=== PATIENT | male | born 1950 | race Two or more races ===

== ENCOUNTER 2018-02-04 20:36 | Inpatient (IN) | payer MEDICARE, MEDICAID ==
[~2018-02-04] VITALS: Ht 170.2 cm; Wt 61.7 kg
[2018-02-04 21:17] LABS: BASOPHILS % (AUTO) 0.9 % (0.0-2.0); EOSINOPHILS # (AUTO) 0.2 K/uL (0.0-0.7); EOSINOPHILS % (AUTO) 3.9 % (0.0-7.0); HEMATOCRIT 40.8 % (36.7-47.1); LYMPHOCYTES # (AUTO) 1.2 K/uL (20.0-40.0); LYMPHOCYTES % (AUTO) 23.8 % (20.5-51.5); MEAN CORPUSCULAR HEMOGLOBIN 30.1 uug (23.8-33.4); MEAN CORPUSCULAR HGB CONC 34 g/dL (32.5-36.3); MEAN CORPUSCULAR VOLUME 87.9 fL (73.0-96.2); MONOCYTES # (AUTO) 0.5 K/uL (2.0-10.0); MONOCYTES % (AUTO) 10.7 % (0.0-11.0); NEUTROPHILS % (AUTO) 60.7 % (38.5-71.5); PLATELET COUNT (AUTO) 162 K/uL (152-348); RED BLOOD CELL COUNT(AUTO) 4.65 MIL/uL (4.06-5.63)
[2018-02-04] MEDS ORDERED: IBUP-1953 PO (21:20)
[2018-02-04] MEDS ORDERED: ALBU2.5V13 IH (21:20)
[2018-02-04] MEDS ORDERED: FERR325T28 PO (21:20)
[2018-02-04] MEDS ORDERED: MELA5TAB PO (21:20)
[2018-02-04] MEDS ORDERED: ASCO500T10 PO (21:20)
[2018-02-04] MEDS ORDERED: CARB15DR49 OT (21:20)
[2018-02-04] MEDS ORDERED: CHOL10002 PO (21:20)
[2018-02-04] MEDS ORDERED: ALEN70TA45 PO (21:20)
[2018-02-04] MEDS ORDERED: LEUP22.54 SQ (21:20)
[2018-02-04] MEDS ORDERED: ACET-2154 PO (21:20)
[2018-02-04] MEDS ORDERED: HYDR-3326 PO (21:20)
[2018-02-04] MEDS ORDERED: ATOR10TA PO (21:20)
[2018-02-04] MEDS ORDERED: IPRA12.9 IH (21:20)
[2018-02-04] MEDS ORDERED: OMEP20TA5 PO (21:20)
[2018-02-04] MEDS ORDERED: CALC500T3 PO (21:20)
[2018-02-04] MEDS ORDERED: [UNRECOGNIZED DRUG - OTHER] (21:20)
[2018-02-04] MEDS ORDERED: SERT50TA PO (21:20)
[2018-02-04] MEDS ORDERED: SUCR1TAB PO (21:20)
[2018-02-04] MEDS ORDERED: CLON0.5T4 PO (21:20)
[2018-02-04] MEDS ORDERED: PRIM50TA PO (21:20)
[2018-02-04] MEDS ORDERED: FLUT12AE IH (21:23)
[2018-02-04 21:24] LABS: CARBON DIOXIDE 22 mmol/L (21-32); CHLORIDE 103 mmol/L (98-107); CREATININE 1.2 mg/dL (0.6-1.3); GLUCOSE 107 mg/dL (74-106); POTASSIUM 3.8 mmol/L (3.5-5.1); UREA NITROGEN, BLOOD 26 mg/dL (7-18)
[2018-02-04 21:29] LABS: ALANINE AMINOTRANSFERASE 33 U/L (16-63); ALKALINE PHOSPHATASE 89 U/L (50-136); ASPARTATE AMINOTRANSFERASE 18 U/L (15-37); BILIRUBIN,DIRECT 0.1 mg/dL (0.0-0.2); BILIRUBIN,TOTAL 0.2 mg/dL (0.2-1.0); TOTAL PROTEIN, SERUM 6.5 g/dL (6.4-8.2)
[2018-02-04 21:30] LABS: ACETAMINOPHEN < 2.0 ug/mL (10-30)
[2018-02-04 21:36] LABS: ETHANOL < 3 MG/DL (0-0)
[2018-02-04 21:37] LABS: THYROID STIMULATING HORMONE 4.835 mIU/mL (0.358-3.740)
[2018-02-04] MEDS ORDERED: TEMAZEPAM 7.5 MG CAPSULE PO PRN (23:00)
[2018-02-04] MEDS ORDERED: MAGNESIUM HYDROXIDE 30 ML LIQUID UDC PO PRN (23:00)
[2018-02-04] MEDS ORDERED: ACETAMINOPHEN 325 MG TABLET PO PRN (23:00)
[2018-02-04] MEDS ORDERED: MAG HYDROX/AL HYDROX/SIMETH 30 ML LIQUID UDC PO PRN (23:00)
[2018-02-04 23:57] VITALS: BP 105/60
[2018-02-05 08:13] VITALS: BP 119/70
[2018-02-05] MEDS: IPRATROPIUM BROMIDE 0.5 MG/2.5 ML NEBU NEB PRN ×2 (13:02→21:08)
[2018-02-05] MEDS: ALBUTEROL SULFATE 2.5 MG/ 0.5 ML NEBU IH PRN ×2 (13:02→21:08)
[2018-02-05] MEDS: PRIMIDONE 50 MG TABLET PO SCH ×2 (14:02→16:37)
[2018-02-05] MEDS: LORAZEPAM 0.5 MG TABLET PO PRN (14:37)
[2018-02-05 15:28] VITALS: BP 100/61
[2018-02-05] MEDS: QUETIAPINE FUMARATE 25 MG TABLET PO SCH (16:37)
[2018-02-05] MEDS: CARBAMIDE PEROXIDE OTIC DROP 15 ML BOTTLE OT SCH (16:37)
[2018-02-05 17:08] LABS: *BILIRUBIN,URIN NEGATIVE (NEGATIVE); *BLOOD, URINE NEGATIVE (NEGATIVE); *CLARITY,URINE CLEAR (CLEAR); *COLOR,URINE YELLOW (YELLOW); *KETONES,URINE NEGATIVE (NEGATIVE); *PROTEIN,URINE NEGATIVE (NEGATIVE); *UROBILINOGEN,URINE 0.2 E.U./dl (NORMAL); LEUKOCYTE ESTERASE ,URINE NEGATIVE (NEGATIVE); NITRITE, URINE NEGATIVE (NEGATIVE); PH,URINE 5.5 (5.0-8.0); UGLUCOSE NEGATIVE (NEGATIVE)
[2018-02-05 17:18] LABS: WBC,URINE 0-3 /HPF (0-3)
[2018-02-05 17:19] LABS: CALCIUM OXALATE CRYSTALS,UR MODERATE /HPF (NONE SEEN); MUCUS,URINE FEW /LPF (0-FEW)
[2018-02-05 17:20] LABS: *AMPHETAMINE, URINE NEGATIVE (NEGATIVE); *BARBITURATE, URINE POSITIVE (NEGATIVE); *CANNABINOID, URINE NEGATIVE (NEGATIVE); *COCCAINE, URINE NEGATIVE (NEGATIVE); *OPIATE, URINE NEGATIVE (NEGATIVE); *PHENCYCLIDINE SCREEN,URINE NEGATIVE (NEGATIVE)
[2018-02-05] MEDS: HYDROCODONE/APAP 5-325MG TABLET PO PRN (17:34)
[2018-02-05 19:51] VITALS: BP 92/58
[2018-02-05] MEDS ORDERED: FLUTICASONE/SALMETEROL 250/50 INHALER INH SCH (21:00)
[2018-02-05] MEDS: ATORVASTATIN 10 MG TABLET PO SCH (21:19)
[2018-02-05] MEDS: DIVALPROEX 250 MG TABLET.DR PO SCH (21:19)
[2018-02-06] MEDS: PANTOPRAZOLE SODIUM 40 MG TABLET.DR PO SCH (06:38)
[2018-02-06 07:30] VITALS: BP 90/66
[2018-02-06] MEDS ORDERED: Medication Not On Formulary EA (Omeprazole 20 MG) PO SCH (09:00)
[2018-02-06] MEDS: CARBAMIDE PEROXIDE OTIC DROP 15 ML BOTTLE OT SCH ×2 (09:00→17:40)
[2018-02-06] MEDS: SUCRALFATE 1 G TABLET PO SCH (09:45)
[2018-02-06] MEDS: CHOLECALCIFEROL 1,000 UNIT TABLET PO SCH (09:45)
[2018-02-06] MEDS: PRIMIDONE 50 MG TABLET PO SCH ×3 (09:45→17:40)
[2018-02-06] MEDS: QUETIAPINE FUMARATE 25 MG TABLET PO SCH ×2 (09:45→17:40)
[2018-02-06] MEDS: DIVALPROEX 250 MG TABLET.DR PO SCH ×2 (09:45→20:26)
[2018-02-06] MEDS: SERTRALINE HCL 50 MG TABLET PO SCH (09:45)
[2018-02-06] MEDS: ASCORBIC ACID 500 MG TABLET PO SCH (09:45)
[2018-02-06] MEDS: FERROUS SULFATE 325 MG TABEC PO SCH (09:45)
[2018-02-06] MEDS: CALCIUM CARBONATE 500 MG TABLET PO SCH (09:45)
[2018-02-06] MEDS: FLUTICASONE/VILANTEROL 1 EACH BLST.W.DEV INH SCH (09:47)
[2018-02-06 16:42] VITALS: BP 109/75
[2018-02-06] MEDS: ATORVASTATIN 10 MG TABLET PO SCH (20:26)
[2018-02-06 21:42] VITALS: BP 107/67
[2018-02-07] MEDS: PANTOPRAZOLE SODIUM 40 MG TABLET.DR PO SCH (06:13)
[2018-02-07 07:32] LABS: BASOPHILS % (AUTO) 0.8 % (0.0-2.0); EOSINOPHILS # (AUTO) 0.3 K/uL (0.0-0.7); HEMOGLOBIN 13.8 g/dL (12.5-16.3); LYMPHOCYTES % (AUTO) 19.4 % (20.5-51.5); MEAN CORPUSCULAR HEMOGLOBIN 30.5 uug (23.8-33.4); MEAN CORPUSCULAR HGB CONC 35 g/dL (32.5-36.3); MEAN CORPUSCULAR VOLUME 88.4 fL (73.0-96.2); MONOCYTES # (AUTO) 0.5 K/uL (2.0-10.0); MONOCYTES % (AUTO) 9.3 % (0.0-11.0); NEUTROPHILS # (AUTO) 3.5 K/uL (1.8-8.9); NEUTROPHILS % (AUTO) 64.5 % (38.5-71.5); PLATELET COUNT (AUTO) 146 K/uL (152-348); RED BLOOD CELL COUNT(AUTO) 4.53 MIL/uL (4.06-5.63); WHITE BLOOD COUNT (AUTO) 5.4 K/uL (3.6-10.2)
[2018-02-07 07:49] LABS: BILIRUBIN,TOTAL 0.3 mg/dL (0.2-1.0); CREATININE 0.9 mg/dL (0.6-1.3); POTASSIUM 3.7 mmol/L (3.5-5.1); TOTAL PROTEIN, SERUM 6.2 g/dL (6.4-8.2)
[2018-02-07 07:55] VITALS: BP 128/62
[2018-02-07] MEDS: CALCIUM CARBONATE 500 MG TABLET PO SCH (09:02)
[2018-02-07] MEDS: FERROUS SULFATE 325 MG TABEC PO SCH (09:03)
[2018-02-07] MEDS: SERTRALINE HCL 50 MG TABLET PO SCH (09:03)
[2018-02-07] MEDS: QUETIAPINE FUMARATE 25 MG TABLET PO SCH ×2 (09:03→16:49)
[2018-02-07] MEDS: DIVALPROEX 250 MG TABLET.DR PO SCH ×2 (09:03→20:33)
[2018-02-07] MEDS: ASCORBIC ACID 500 MG TABLET PO SCH (09:03)
[2018-02-07] MEDS: PRIMIDONE 50 MG TABLET PO SCH ×3 (09:03→16:49)
[2018-02-07] MEDS: CHOLECALCIFEROL 1,000 UNIT TABLET PO SCH (09:03)
[2018-02-07] MEDS: SUCRALFATE 1 G TABLET PO SCH (09:03)
[2018-02-07] MEDS: CARBAMIDE PEROXIDE OTIC DROP 15 ML BOTTLE OT SCH ×2 (09:45→16:49)
[2018-02-07] MEDS: FLUTICASONE/VILANTEROL 1 EACH BLST.W.DEV INH SCH (09:45)
[2018-02-07 15:49] VITALS: BP 100/65
[2018-02-07 20:30] VITALS: BP 105/66
[2018-02-07] MEDS: ATORVASTATIN 10 MG TABLET PO SCH (20:33)
[2018-02-08] MEDS: PANTOPRAZOLE SODIUM 40 MG TABLET.DR PO SCH (06:56)
[2018-02-08 07:30] VITALS: BP 96/51
[2018-02-08] MEDS: SUCRALFATE 1 G TABLET PO SCH (08:06)
[2018-02-08] MEDS: FERROUS SULFATE 325 MG TABEC PO SCH (08:07)
[2018-02-08] MEDS: QUETIAPINE FUMARATE 25 MG TABLET PO SCH ×2 (08:07→17:02)
[2018-02-08] MEDS: CALCIUM CARBONATE 500 MG TABLET PO SCH (08:07)
[2018-02-08] MEDS: DIVALPROEX 250 MG TABLET.DR PO SCH ×2 (08:07→21:28)
[2018-02-08] MEDS: PRIMIDONE 50 MG TABLET PO SCH ×3 (08:08→17:02)
[2018-02-08] MEDS: ASCORBIC ACID 500 MG TABLET PO SCH (08:08)
[2018-02-08] MEDS: CHOLECALCIFEROL 1,000 UNIT TABLET PO SCH (08:08)
[2018-02-08] MEDS: SERTRALINE HCL 50 MG TABLET PO SCH (08:08)
[2018-02-08] MEDS: FLUTICASONE/VILANTEROL 1 EACH BLST.W.DEV INH SCH (08:49)
[2018-02-08] MEDS ORDERED: ALENDRONATE SODIUM 70 MG TABLET PO SCH (09:00)
[2018-02-08] MEDS: CARBAMIDE PEROXIDE OTIC DROP 15 ML BOTTLE OT SCH ×2 (13:39→17:02)
[2018-02-08 15:03] VITALS: BP 127/66
[2018-02-08] MEDS: HYDROCODONE/APAP 5-325MG TABLET PO PRN (15:30)
[2018-02-08 20:08] VITALS: BP 105/65
[2018-02-08] MEDS: ATORVASTATIN 10 MG TABLET PO SCH (21:28)
[2018-02-08] MEDS: LORAZEPAM 0.5 MG TABLET PO PRN (23:48)
[2018-02-09] MEDS: PANTOPRAZOLE SODIUM 40 MG TABLET.DR PO SCH (06:37)
[2018-02-09 07:30] VITALS: BP 115/55
[2018-02-09] MEDS: CHOLECALCIFEROL 1,000 UNIT TABLET PO SCH (08:38)
[2018-02-09] MEDS: SERTRALINE HCL 50 MG TABLET PO SCH (08:38)
[2018-02-09] MEDS: FERROUS SULFATE 325 MG TABEC PO SCH (08:38)
[2018-02-09] MEDS: PRIMIDONE 50 MG TABLET PO SCH ×3 (08:38→17:41)
[2018-02-09] MEDS: ASCORBIC ACID 500 MG TABLET PO SCH (08:38)
[2018-02-09] MEDS: DIVALPROEX 250 MG TABLET.DR PO SCH ×2 (08:38→20:01)
[2018-02-09] MEDS: QUETIAPINE FUMARATE 25 MG TABLET PO SCH ×2 (08:38→17:41)
[2018-02-09] MEDS: SUCRALFATE 1 G TABLET PO SCH (08:38)
[2018-02-09] MEDS: CALCIUM CARBONATE 500 MG TABLET PO SCH (08:38)
[2018-02-09] MEDS: CARBAMIDE PEROXIDE OTIC DROP 15 ML BOTTLE OT SCH ×2 (08:39→17:00)
[2018-02-09] MEDS: FLUTICASONE/VILANTEROL 1 EACH BLST.W.DEV INH SCH (08:39)
[2018-02-09] MEDS ORDERED: BISACODYL 10 MG SUPP.RECT RC PRN (10:30)
[2018-02-09] MEDS: DOCUSATE SODIUM 100 MG CAPSULE PO SCH ×2 (11:07→20:01)
[2018-02-09] MEDS: MAGNESIUM HYDROXIDE 30 ML LIQUID UDC PO ONE ×2 (11:07→11:11)
[2018-02-09] MEDS: CLONAZEPAM 0.5 MG TABLET PO PRN (13:34)
[2018-02-09 15:14] VITALS: BP 96/55
[2018-02-09] MEDS: ATORVASTATIN 10 MG TABLET PO SCH (20:01)
[2018-02-09 20:18] VITALS: BP 106/58
[2018-02-10] MEDS: PANTOPRAZOLE SODIUM 40 MG TABLET.DR PO SCH (06:24)
[2018-02-10 07:30] VITALS: BP 90/56
[2018-02-10] MEDS: DIVALPROEX 250 MG TABLET.DR PO SCH (08:33)
[2018-02-10] MEDS: ASCORBIC ACID 500 MG TABLET PO SCH (08:33)
[2018-02-10] MEDS: CHOLECALCIFEROL 1,000 UNIT TABLET PO SCH (08:33)
[2018-02-10] MEDS: CALCIUM CARBONATE 500 MG TABLET PO SCH (08:33)
[2018-02-10] MEDS: PRIMIDONE 50 MG TABLET PO SCH ×3 (08:34→16:09)
[2018-02-10] MEDS: CARBAMIDE PEROXIDE OTIC DROP 15 ML BOTTLE OT SCH ×2 (08:35→16:09)
[2018-02-10] MEDS: SUCRALFATE 1 G TABLET PO SCH (08:38)
[2018-02-10] MEDS: SERTRALINE HCL 50 MG TABLET PO SCH (08:38)
[2018-02-10] MEDS: QUETIAPINE FUMARATE 25 MG TABLET PO SCH ×2 (08:38→16:09)
[2018-02-10] MEDS: FERROUS SULFATE 325 MG TABEC PO SCH (08:38)
[2018-02-10] MEDS: FLUTICASONE/VILANTEROL 1 EACH BLST.W.DEV INH SCH (08:39)
[2018-02-10] MEDS: DOCUSATE SODIUM 100 MG CAPSULE PO SCH (08:57)
[2018-02-10] MEDS: CLONAZEPAM 0.5 MG TABLET PO PRN (10:59)
[2018-02-10 15:38] VITALS: BP 92/54
[2018-03-25] MEDS ORDERED: LEUPROLIDE 22.5 MG SQ SCH (09:00)
== END 2018-02-10 19:30 | DRG 881 ==
LOC: ER 20:40 → GPS 22:15
PROVIDERS: ADMIT Psychiatry & Neurology Psychiatry; ATTEND Internal Medicine
DX: F32.9 Major depressive disorder, single episode, unspecified (principal); N17.0 Acute kidney failure with tubular necrosis; D69.6 Thrombocytopenia, unspecified; F20.0 Paranoid schizophrenia; N31.9 Neuromuscular dysfunction of bladder, unspecified; G40.909 Epilepsy, unspecified, not intractable, without status epilepticus; C61 Malignant neoplasm of prostate; J44.9 Chronic obstructive pulmonary disease, unspecified; Z86.59 Personal history of other mental and behavioral disorders; Z79.818 Long term (current) use of other agents affecting estrogen receptors and estrogen levels; Z87.820 Personal history of traumatic brain injury; E78.5 Hyperlipidemia, unspecified; E02 Subclinical iodine-deficiency hypothyroidism; H61.23 Impacted cerumen, bilateral; G89.29 Other chronic pain; M54.5 Low back pain; R26.9 Unspecified abnormalities of gait and mobility; F43.10 Post-traumatic stress disorder, unspecified; M81.0 Age-related osteoporosis without current pathological fracture; Z79.899 Other long term (current) drug therapy; Z87.440 Personal history of urinary (tract) infections; Z59.9 Problem related to housing and economic circumstances, unspecified
CPT/HCPCS: 36415; 70030-TC; 70450; 71045; 80164; 80307; 83735; 84100; 84443; 84481; 85025; 85730; 87086; 93005; 94640; 94664; A4663; G0480; G0480-TC; J3490; J3590; J8499